=== PATIENT | male | born 2000 | race Caucasian/White ===

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

== ENCOUNTER 2021-03-11 22:44 | Emergency (ER) | payer OTHER ==
[~2021-03-11 22:44] MED LIST changes: +MOTRIN800 MG PO
[2021-03-11] MEDS ORDERED: IBUPROFEN600 MG PO (23:25)
[2021-03-11] MEDS ORDERED: KEFLEX500 M1 PO (23:25)
[2021-03-12 00:09] VITALS: BP 126/77
== END 2021-03-12 00:09 | disposition home or self-care (01) ==
LOC: ED 22:44
DX: L60.0 Ingrowing nail (principal)

== ENCOUNTER 2021-07-21 13:17 | Emergency (ER) | payer OTHER ==
[~2021-07-21] VITALS: Ht 170.2 cm; Wt 109.1 kg
[~2021-07-21 13:17] MED LIST changes: +IBUPROFEN600 MG PO; +KEFLEX500 M1 PO
[2021-07-21 15:14] VITALS: BP 127/70
== END 2021-07-21 15:20 | disposition home or self-care (01) ==
LOC: ED 13:17
DX: R05 Cough (principal); F17.290 Nicotine dependence, other tobacco product, uncomplicated; Z86.16 Personal history of COVID-19

== ENCOUNTER 2021-08-10 09:35 | Emergency (ER) | payer OTHER ==
[~2021-08-10] VITALS: Ht 175.3 cm; Wt 125.0 kg
[2021-08-10 10:41] LABS: HEMATOCRIT 45.7 % (39.0-50.0); HEMOGLOBIN 14.4 g/dl (14.0-18.0); IMMATURE GRANULOCYTES 0.4 % (0.0-5.0); MEAN CELL VOLUME 90.5 fL CALC (80.0-100.0); MEAN CORPUSCULAR HGB 28.5 pG CALC (26.0-32.0); MEAN CORPUSCULAR HGB CONC 31.5 g/dL CAL (32.0-36.0); NEUT# 5.33 thou/uL (1.82-7.42); RED BLOOD COUNT 5.05 mill/uL (4.70-6.10); RED CELL DISTRI WIDTH 12.8 % (11.5-15.5)
[2021-08-10 10:53] LABS: ALBUMIN 4.3 g/dL (3.2-5.0); ALKALINE PHOSPHATASE 102 u/l (38-126); AMYLASE 45 u/l (30-110); ANION GAP 12 (6-22 (CALC)); BILIRUBIN, TOTAL 0.4 mg/dL (0.0-1.4); BUN 16 mg/dL (9-20); BUN/CREATININE RATIO 22 (12-20 (CALC)); CARBON DIOXIDE 25 mmol/l (22-30); CHLORIDE 107 mmol/l (95-108); CREATININE 0.7 mg/dL (0.7-1.3); GFR > 60 ML/MIN (>=60 (CALC)); GFR FOR AFR.AMER. > 60 ML/MIN (>=60 (CALC)); LIPASE 58 u/l (23-300); POTASSIUM 4.3 mmol/l (3.5-5.1); SGOT/AST 27 u/l (17-59); SODIUM 140 mmol/l (137-146); TOTAL PROTEIN 7.5 g/dL (6.3-8.2)
[2021-08-10] MEDS ORDERED: LOMOTIL2.5 MG PO (12:54)
[2021-08-10 13:03] VITALS: BP 113/75
== END 2021-08-10 13:15 | disposition home or self-care (01) ==
LOC: ED 09:35
DX: R19.7 Diarrhea, unspecified (principal); F17.200 Nicotine dependence, unspecified, uncomplicated; Z86.16 Personal history of COVID-19; Z20.822 Contact with and (suspected) exposure to COVID-19
CPT/HCPCS: Q9967